=== PATIENT | male | born 1980 | race Caucasian/White ===

== ENCOUNTER 2024-07-04 07:33 | Outpatient (CLI) | payer OTHER ==
[2024-07-04] MEDS ORDERED: Magnevist 469MG/ML 20 ML VIAL ONE (15:17)
== END 2024-07-04 07:34 | disposition home or self-care (01) ==
LOC: BICMRI 07:33
PROVIDERS: ATTEND Family Medicine
DX: M51.360 Other intervertebral disc degeneration, lumbar region with discogenic back pain only (principal); M43.8X6 Other specified deforming dorsopathies, lumbar region
CPT/HCPCS: 72158

== ENCOUNTER 2024-08-15 07:54 | Outpatient (CLI) | payer OTHER | END 2024-08-15 07:55 | disposition home or self-care (01) | LOC: BICCT 07:54 | PROVIDERS: ATTEND Neurological Surgery | DX: M54.16 Radiculopathy, lumbar region (principal); Q76.49 Other congenital malformations of spine, not associated with scoliosis; M48.56XA Collapsed vertebra, not elsewhere classified, lumbar region, initial encounter for fracture | CPT/HCPCS: 72120; 72131 ==